=== PATIENT | female | born 1990 | race Caucasian/White ===

== ENCOUNTER 2018-10-01 11:05 | Inpatient (IN) | payer MEDICAID, OTHER ==
[2018-10-01] MEDS ORDERED: MAGNESIUM SULFATE 40GM/1000ML 40 GM/1,000 ML BAG IV ONE (11:55)
[2018-10-01] MEDS ORDERED: MAGNESIUM SULFATE 4GM/100ML 4 GM/100 ML BAG IV ONE (11:56)
[2018-10-01] MEDS ORDERED: CELESTONE SOLUSPAN IM ONE ×2 (11:56→11:58)
[2018-10-01] MEDS ORDERED: MAGNESIUM SULFATE 40GM/1000ML 40 GM/1,000 ML BAG IV SCH (12:00)
[2018-10-01 12:05] LABS: Hematocrit 31.4 % (30.3-42.9); Hemoglobin 10.1 gm/dl (10.1-14.3); Mean Corpuscular HGB Conc 32 % (30-34); Platelet Count 217 K/mm3 (140-440); Red Blood Count 4.54 M/mm3 (3.65-5.03)
[2018-10-01] MEDS ORDERED: AMPICILLIN/NS 2 GM/100 ML 2 GM/100 ML BAG IV NR (12:11)
[2018-10-01 12:17] LABS: Mean Corpuscular Volume 69 fl (79-97)
[2018-10-01] MEDS ORDERED: MORPHINE IV NR (12:17)
[2018-10-01] MEDS ORDERED: LACTATED RINGERS 500 ML IV ONE (12:22)
--- NOTE | 2018-10-01 12:50 | Consultation ---
Consult Note - Parent Education I met with parent(s) and discussed the following:: Need for NICU admission, Poss ible need for intubation and surfactant or other resp support, Temperature regulation, Head ultrasounds to evaluate IVH, Possible need for IV fluids/TPN and IV antibiotics, Possible need for umbilical lines, Importance of providing breast milk & encouraged pumping aft delivery, Donor breast milk if baby meets criteria after , Slow feeding advancement and monitoring of tolerance. NG/OG feeds, Data for survival & survival without significant co-morbidities Parent(s) demonstrated understanding of all the information:: Yes Additional Comment: Approx 25 weeks gestation presenting with labor, fully dilated cervix and bulging bag Assessment and Plan - Assessment Gestation:: 25 (weeks) Estimated Weight: Unknown - Plan Plan: Agree with Mag & steroids Will attend delivery Please call NICU with questions
--- NOTE | 2018-10-01 13:54 | History and Physical Report ---
History of Present Illness Date of admission: 10/01/18 11:40 Chief complaint: back pain, diarrhea History of present illness: 28yo MASTER [birth year] presents to L&D complaining of back pain that started yesterday evening. Upon exam in triage she was found to be 10cm dilated with bulging membranes. She has received late care at [facility] because she was on OCPs at the time of conception therefore she is dated by 21 week sono. Past History - Obstetrical History : 4 Medications and Allergies Allergies Allergy/AdvReac Type Severity Reaction Status Date / Time No Known Allergies Allergy Verified 10/01/18 11:21 Active Meds: Active Medications Magnesium Sulfate (Magnesium Sulfate 40gm/1000ml) 40 gm in 1,000 mls @ 50 mls/hr IV DIRECT CINTHIA Last Admin: 10/01/18 12:38 Dose: 2 gm/hr, 50 mls/hr Documented by: Lactated Ringer's (Lactated Ringers) 1,000 mls @ 75 mls/hr IV DIRECT CINTHIA Ampicillin Sodium (Polycillin/Ns 2 Gm/100 Ml) 2 gm in 100 mls @ 100 mls/hr IV ONCE NR; Protocol Stop: 10/01/18 14:11 - Vital Signs Vital signs: Vital Signs Pulse Pulse Ox 79 99 10/01/18 11:19 10/01/18 11:19 Temp Pulse Resp BP Pulse Ox 97.7 F 98 H 20 128/69 99 10/01/18 11:23 10/01/18 13:47 10/01/18 11:23 10/01/18 13:43 10/01/18 13:47 - Obstetrical FHR: category 2 Cervical Dilatation: 10 Cervical Effacement Percentage: 100 station: -5 Results Result Diagrams: 10/01/18 11:40 Abnormal lab results 10/01/18 Range/Units 11:40 MCV 69 L (79-97) fl MCH 22 L (28-32) pg RDW 23.0 H (13.2-15.2) % All other labs normal. Assessment and Plan - Patient Problems (1) 24 weeks gestation of Current Visit: Yes Status: Acute Plan to address problem: Betamethasone for lung maturity Magnesium sulfate for neuroprotection Ampicillin for GBS prophylaxis Routine labs Trendelenburg/Bedrest APA consult. (2) labor Current Visit: Yes Status: Acute Plan to address problem: Neonatology consult. (3) Anemia affecting Current Visit: Yes Status: Acute Plan to address problem: Hbg 8.3 prenatally Supplement with iron sulfate.
[2018-10-01] MEDS ORDERED: PITOCin/NS 20 UNIT/1000ML DRIP 20,000 MILLIUNITS/1,000 ML BAG IV ONE (14:20)
[2018-10-01] MEDS ORDERED: PITOCin/NS 20 UNIT/1000ML DRIP 20 UNITS/1,000 ML BAG IV SCH (15:00)
[2018-10-01] MEDS ORDERED: NACL 0.9% 500 ML 500 ML IV SCH (15:14)
[2018-10-01] MEDS ORDERED: DIPRIVAN 10 MG/ML IV ONE (15:24)
[2018-10-01] MEDS ORDERED: NACL 0.9% IR ONE (15:30)
[2018-10-01] MEDS ORDERED: SUBLIMAZE ONE (15:41)
[2018-10-01] MEDS ORDERED: NEO SYNEPHRINE/NS Syringe(OR USE) IV ONE ×3 (15:44→17:28)
[2018-10-01 15:45] LABS: Hematocrit 23.7 % (30.3-42.9); Hemoglobin 7.7 gm/dl (10.1-14.3); Mean Corpuscular HGB Conc 33 % (30-34); Mean Corpuscular Volume 71 fl (79-97); Platelet Count 290 K/mm3 (140-440); Red Blood Count 3.35 M/mm3 (3.65-5.03)
[2018-10-01] MEDS ORDERED: CYTOTEC PR ONE (15:46)
[2018-10-01] MEDS ORDERED: CYTOTEC ONE (15:47)
[2018-10-01] MEDS ORDERED: NACL 0.9% 500 ML 500 ML ONE (15:52)
[2018-10-01] MEDS ORDERED: NACL 0.9% 500 ML 500 ML IV ONE ×2 (15:54→15:55)
[2018-10-01 16:00] LABS: Alanine Aminotransferase 18 units/L (7-56); BUN/Creatinine Ratio 13; Blood Urea Nitrogen 5 mg/dL (7-17); Calcium 7.9 mg/dL (8.4-10.2); Hemolysis Index 13
[2018-10-01 16:23] LABS: Red Cell Distribution Width 22.4 % (13.2-15.2)
--- NOTE | 2018-10-01 16:50 | Procedure Note ---
OB Delivery Note - Delivery Surgeon: EDUARDO MUKHERJEE Estimated blood loss: 1000cc - Vaginal Intrapartum events: labor-<37 weeks Delivery induction: none Delivery augmentation: rupture of membranes Delivery monitor: external FHT Route of delivery: Delivery placenta: manual (see OR report) Episiotomy: none Delivery laceration: none Delivery comments: Called to the Room 2006 by Ms Yeimy RN for worsening of painful contractions and maternal complaint of pressure. Upon entering the room membranes were bulging from the introitus under pressure. Membranes were ruptured and slow rupture of membranes ensued. vertex descended the vaginal canal and body delivered with maternal expulsion forces. Delayed cord clamping was instructed by Dr. Kinney and was covered with blue towel and stimulated. Cord was then clamped and cut x 2 and handed over to awaiting neonatology staff. Attention was then turned to delivery of the placenta. The cord was noted to avulse and bleeding was 600-800ml at that time. A D&C was called for delivery of the placenta in a placenta undergoing avulsion when the patient stated she felt "dizzy." Sternal rub was administered, blood pressure noted 114/70--> 90/50s. The patient was intermittently in and out of consciousness. A code was called. The patient was transported to the OR for continued management. See OP report.
--- NOTE | 2018-10-01 17:23 | Operative Report ---
Operative Report Operative Report: DATE OF OPERATION 10/01/18 PREOP Diagnosis 1. hemorrhage 2. Retained placenta 3. Partial umbilical cord avulsion 3. delivery POSTOP Diagnosis 1. hemorrhage 2. Retained placenta 3. Partial umbilical cord avulsion 3. delivery Procedure: 1) Suction Dilatation and Curettage 2) Manual removal of placenta Findings 1. Uterus firm and below umbilicus at close of case Surgeon 1. Iwona Ivy MD Anesthesia: 1. General I/O: EBL: 1300ml (labor and operating room blood loss) 3 units packed red blood cells (including 2 units O negative) Specimens removed: 1. Products of conception 2. Placenta Complications: none Disposition: Patient taken to recovery room in stable condition INDICATIONS: The patient is a 28yo s/p spontaneous vaginal delivery of infant. During delivery of placenta the patient became hypotensive, tachycardic and with delayed response to commands. Due to the hemorrhage and partial cord avulsion the patient was transported to Labor and Delivery OR for a suction D&C and manual removal of placenta . The patient was previously consented and the risks including but not limited to bleeding, infection, injury to surrounding organs and possible need for hysterectomy were discussed. All questions were answered and informed consent signed. PROCEDURE: The patient was taken to OR1 in stable condition. She was placed in the supine position. She received Doxycycline 200mg IV and wore SCDs. Adequate anesthesia was achieved and the patient was placed in the dorsal lithotomy position using Luis Stirrups. Vaginal prep was done and she was prepped and draped in a sterile fashion. A surgical hand was placed into the uterus and placenta manually removed. Bimanual massage was done. A sterile speculum was placed per vagina and single-toothed tenaculum placed on the anterior lip of the cervix. A #10 curved cannula was then connected to the suction canister. Adequate pressure was achieved with the suction. The cannula was then placed through the cervical os and products of conception was collected. A #2 sharp curette was used to gently currette the uterus. Speculum and tenaculum were removed and noted to be hemostatic. Pitocin 40 units IV was administered. 1000mcg Misoprostol was placed per rectum. The uterus was noted to be firm at close of case. Minimal uterine bleeding was noted. All counts were correct. The patient tolerated the procedure well and was awakened from anesthesia and taken to the recovery room. The patient received 2 units pRBCs in the OR and pressors to treat hypotension. Due to the level of care required she was transported to the ICU for recovery.
[2018-10-01] MEDS ORDERED: NACL 0.9% 1000 ML 3,000 ML ONE (17:28)
[2018-10-01] MEDS ORDERED: LACTATED RINGERS 1,000 ML ONE (17:28)
[2018-10-01] MEDS ORDERED: XYLOCAINE MPF 2% ONE (17:29)
[2018-10-01 17:50] LABS: INR 1.06 (0.87-1.13); Partial Thromboplastin Time 21.2 Sec. (24.2-36.6)
[2018-10-01] MEDS: LACTATED RINGERS 1,000 ML IV SCH (18:22)
[2018-10-01] MEDS ORDERED: PERCOCET 5/325 PO ONE (18:30)
[2018-10-01] MEDS: DOXYCYCLINE HYCLATE 200 MG in NACL 0.9% 250ML 250 ML IV SCH (18:30)
[2018-10-01] MEDS ORDERED: LANSINOH TP PRN (19:31)
[2018-10-01] MEDS ORDERED: ZOFRAN IV PRN (19:31)
[2018-10-01] MEDS ORDERED: MILK OF MAGNESIA PO PRN (19:31)
[2018-10-01] MEDS ORDERED: DULCOLAX PR PRN (19:31)
[2018-10-01] MEDS ORDERED: BENADRYL PO PRN (19:31)
[2018-10-01] MEDS ORDERED: PHENERGAN PR PRN (19:31)
[2018-10-01] MEDS ORDERED: TUCKS PAD TP PRN (19:31)
[2018-10-01] MEDS ORDERED: TYLENOL PO PRN (19:31)
[2018-10-01] MEDS ORDERED: PHENERGAN PO PRN (19:31)
[2018-10-01] MEDS ORDERED: SODIUM CHLORIDE FLUSH SYRINGE 10 ML IV PRN (20:00)
[2018-10-01 21:46] LABS: Hematocrit 23.5 % (30.3-42.9); Hemoglobin 7.8 gm/dl (10.1-14.3)
[2018-10-01] MEDS: METHERGINE PO SCH (22:00)
[2018-10-01] MEDS: FEOSOL PO SCH (22:00)
[2018-10-01] MEDS: COLACE PO SCH (22:15)
[2018-10-02] MEDS: IBUPROFEN PO SCH ×4 (00:44→13:48)
[2018-10-02] MEDS: LACTATED RINGERS 1,000 ML IV SCH ×2 (04:31→09:42)
[2018-10-02] MEDS: METHERGINE PO SCH ×3 (06:20→21:37)
[2018-10-02] MEDS: DOXYCYCLINE HYCLATE 200 MG in NACL 0.9% 250ML 250 ML IV SCH (06:21)
--- NOTE | 2018-10-02 07:04 | Anesthesia Consultation ---
Anesthesia Consult and Med Hx Date of service: 10/02/18 - Airway Anesthetic Teeth Evaluation: Good ROM Head & Neck: Adequate Mental/Hyoid Distance: Adequate Mallampati Class: Class II Intubation Access Assessment: Probably Good - Pre-Operative Health Status ASA Pre-Surgery Classification: ASA3, Emergency Proposed Anesthetic Plan: General - Pulmonary Hx Asthma: No COPD: No Hx Pneumonia: No - Cardiovascular System Hx Hypertension: No - Central Nervous System Hx Seizures: No Hx Psychiatric Problems: No - Endocrine Hx Renal Disease: No Hx End Stage Renal Disease: No Hx Hypothyroidism: No Hx Hyperthyroidism: No - Hematic Hx Anemia: Yes - Other Systems Hx Alcohol Use: No Hx Cancer: No - Additional Comments Anesthesia Medical History Comments: severe hemorrhage, taken to OR for D&C
--- NOTE | 2018-10-02 07:04 | Anesthesia Day of Surgery ---
Anesthesia Day of Surgery - Day of Surgery Patient Examined: Yes Patient H&P Reviewed: Yes Patient is NPO: Yes
--- NOTE | 2018-10-02 07:07 | Post Anesthesia Evaluation ---
- Post Anesthesia Evaluation Patient Participated: Yes Airway Patent: Yes Stable Respiratory Function: Yes Nausea/Vomiting: No Temp > 96.8F: Yes Pain Manageable: Yes Adequeate Hydration: Yes Anesthesia Complications: No Block Receding Appropriately: Not Applicable Patient on Ventilator: No
[2018-10-02] MEDS: FEOSOL PO SCH ×2 (09:39→21:37)
[2018-10-02] MEDS: COLACE PO SCH ×2 (09:40→21:37)
[2018-10-02] MEDS: PRENATAL VITAMIN PO SCH (09:40)
[2018-10-02 10:03] LABS: Hematocrit 21.8 % (30.3-42.9)
--- NOTE | 2018-10-02 12:44 | Consultation ---
History of Present Illness - Reason for Consult Consult date: 10/02/18 Intraoperative Hemorrhage and Post-op follow up. Requesting physician: EDUARDO MUKHERJEE - History of Present Illness 28 y/o female with status post with hemorrhage transitioned to the ICU for further monitoring. Patient was given 2 units of PRBC's during the case as They suspected a 2 liters blood loss. I spoke with anesthesia from the OR yesterday who gave me some insight into the procedure and case. Patient awake and alert. Stable. Art line pressure is much better than cuff. Past History Past Medical History: other (multiple pregnancies) Past Surgical History: Medications and Allergies Allergies Allergy/AdvReac Type Severity Reaction Status Date / Time No Known Allergies Allergy Verified 10/01/18 11:21 Home Medications Medication Instructions Recorded Confirmed Last Taken Type Vitamin 1 tab PO DAILY 10/01/18 10/01/18 09/30/18 History Active Meds: Active Medications Acetaminophen (Tylenol) 650 mg PO Q4H PRN PRN Reason: Pain MILD(1-3)/Fever >100.5/CAIN Acetaminophen/Hydrocodone Bitart ([place] 5/325) 2 each PO Q6H PRN PRN Reason: Pain, Moderate (4-6) Bisacodyl (Dulcolax) 10 mg RI BID PRN PRN Reason: Constipation Diphenhydramine HCl (Benadryl) 25 mg PO Q6H PRN PRN Reason: Itching Docusate Sodium (Colace) 100 mg PO BID [facility] Last Admin: 10/02/18 09:40 Dose: 100 mg Documented by: Ferrous Sulfate (Feosol) 325 mg PO BID [facility] Last Admin: 10/02/18 09:39 Dose: 325 mg Documented by: Magnesium Sulfate (Magnesium Sulfate 40gm/1000ml) 40 gm in 1,000 mls @ 50 mls/hr IV DIRECT CINTHIA Last Admin: 10/01/18 12:38 Dose: 2 gm/hr, 50 mls/hr Documented by: Lactated Ringer's (Lactated Ringers) 1,000 mls @ 75 mls/hr IV DIRECT CINTHIA Last Admin: 10/02/18 09:42 Dose: 75 mls/hr Documented by: Oxytocin/Sodium Chloride (Pitocin/Ns 20 Unit/1000ml Drip) 20 units in 1,000 mls @ 0 mls/hr IV DIRECT [facility] Ibuprofen (Motrin) 600 mg PO Q6H [facility] Last Admin: 10/02/18 09:39 Dose: 600 mg Documented by: Magnesium Hydroxide (Milk Of Magnesia) 30 ml PO HS PRN PRN Reason: Constipation Measles/Mumps/Rubella Vaccine Live (M-M-R Ii Vaccine) 0.5 ml SUB-Q .ONCE ONE Stop: 10/02/18 19:32 Methylergonovine Maleate (Methergine) 0.2 mg PO Q8HR [facility] Last Admin: 10/02/18 06:20 Dose: 0.2 mg Documented by: Multi-Ingredient Ointment (Lansinoh) 1 applic TP PRN PRN PRN Reason: Sore Nipples Multivitamins/Iron/Calcium ( Vitamin) 1 each PO QDAY [facility] Last Admin: 10/02/18 09:40 Dose: 1 each Documented by: Ondansetron HCl (Zofran) 4 mg IV Q8H PRN PRN Reason: Nausea And Vomiting Promethazine HCl (Phenergan) 25 mg RI Q6H PRN PRN Reason: Nausea And Vomiting Promethazine HCl (Phenergan) 25 mg PO Q6H PRN PRN Reason: Nausea And Vomiting Sodium Chloride (Sodium Chloride Flush Syringe 10 Ml) 10 ml IV PRN PRN PRN Reason: LINE FLUSH Witch Alicia/Glycerin (Tucks Pad) 1 each TP PRN PRN PRN Reason: Hemorrhoid/cleansing/soothing Review of Systems All systems: negative Exam - Constitutional Vitals: Temp Pulse Resp BP Pulse Ox 99.1 F 90 16 105/67 98 10/02/18 03:35 10/02/18 10:00 10/02/18 10:00 10/02/18 10:00 10/02/18 10:00 General appearance: Present: no acute distress, well-nourished - EENT Eyes: Present: PERRL, EOM intact ENT: hearing intact, clear oral mucosa, dentition normal - Neck Neck: Present: supple, normal ROM - Respiratory Respiratory effort: normal Respiratory: bilateral: CTA - Cardiovascular Rhythm: regular Heart Sounds: Present: S1 & S2 - Abdominal General gastrointestinal: Present: other (post-operative) Female genitourinary: Present: deferred - Rectal Rectal Exam: deferred - Musculoskeletal Musculoskeletal: strength equal bilaterally - Psychiatric Psychiatric: appropriate mood/affect - Neurologic Neurologic: CNII-XII intact Results - Labs CBC & Chem 7: 10/02/18 07:50 10/01/18 15:31 Labs: Abnormal lab results 10/01/18 10/01/18 10/01/18 Range/Units 11:40 15:31 15:31 WBC 15.4 H (4.5-11.0) K/mm3 RBC 3.35 L (3.65-5.03) M/mm3 Hgb 7.7 L (10.1-14.3) gm/dl Hct 23.7 L D (30.3-42.9) % MCV 71 L (79-97) fl MCH 23 L (28-32) pg RDW 22.4 H (13.2-15.2) % APTT (24.2-36.6) Sec. Carbon Dioxide 20 L (22-30) mmol/L BUN 5 L (7-17) mg/dL Creatinine 0.4 L (0.7-1.2) mg/dL Glucose 117 H (65-100) mg/dL Calcium 7.9 L (8.4-10.2) mg/dL Magnesium 2.90 H (1.7-2.3) mg/dL Alkaline Phosphatase 134 H (35-129) units/L Total Protein 5.3 L (6.3-8.2) g/dL Albumin 3.0 L (3.9-5) g/dL Crossmatch See Detail 10/01/18 10/01/18 10/02/18 Range/Units 17:00 20:48 07:50 WBC (4.5-11.0) K/mm3 RBC (3.65-5.03) M/mm3 Hgb 7.8 L 7.0 L (10.1-14.3) gm/dl Hct 23.5 L 21.8 L (30.3-42.9) % MCV (79-97) fl MCH (28-32) pg RDW (13.2-15.2) % APTT 21.2 L (24.2-36.6) Sec. Carbon Dioxide (22-30) mmol/L BUN (7-17) mg/dL Creatinine (0.7-1.2) mg/dL Glucose (65-100) mg/dL Calcium (8.4-10.2) mg/dL Magnesium (1.7-2.3) mg/dL Alkaline Phosphatase (35-129) units/L Total Protein (6.3-8.2) g/dL Albumin (3.9-5) g/dL Crossmatch Assessment and Plan 28 y/o female status post for and retained placenta, with intraoperative hemorrhage 1. No further bleeding overnight 2. HgB is 7. Prior to OR was [address] Mukherjee who thinks she may have been 8 a month ago. I would believe the 8 more than 10. Will hold on transfusion for now and suggest checking H/H daily. If less then 7 would transfuse. OB appears to follow hematocrit more as this was asked about this morning. 3. We will remove the art line 4. Stable for transfer. Will send to mother baby 5. All others per BENDING ROLL OPERATOR
--- NOTE | 2018-10-02 15:15 | Progress Note ---
Assessment and Plan - Patient Problems (1) 24 weeks gestation of Current Visit: Yes Status: Acute Plan to address problem: s/p vaginal delivery Recovered well in NICU overnight. Will monitor and if stable may be discharged home tomorrow. (2) labor Current Visit: Yes Status: Acute Plan to address problem: Infant in NICU (3) Anemia affecting Current Visit: Yes Status: Acute Plan to address problem: Hbg 8.3 prenatally s/p 2 units pRBCs for hemorrhage Current H/H 02/08. Asymptomatic. Will start supplemental iron. (4) hemorrhage Current Visit: Yes Status: Acute Plan to address problem: s/p D&C s/p 2 units packed red blood cells s/p misoprostol s/p pitocin IV Stable H/H Subjective - Subjective Interval history: 28yo day #1 s/p delivery, suction D&C secondary to retained placenta and hemorrhage managed overnight in the ICU for hypotension now doing well. Patient reports: appetite normal : doing well (transferred from NICU today ) Objective - Vital Signs Latest vital signs: Vital Signs Temp Pulse Pulse Resp BP Pulse Ox 10/02/18 13:45 95 H 17 108/51 100 10/02/18 13:31 92 H 14 108/51 99 10/02/18 13:15 92 H 14 108/51 99 10/02/18 13:00 96 H 13 108/51 99 10/02/18 12:45 93 H 18 98/46 99 10/02/18 12:31 92 H 28 H 98/46 99 10/02/18 12:15 89 11 L 98/46 100 10/02/18 12:00 99 H 16 102/65 99 10/02/18 11:45 92 H 26 H 102/65 99 10/02/18 11:31 95 H 31 H 102/65 100 10/02/18 11:15 97 H 27 H 102/65 100 10/02/18 11:00 96 H 72 14 102/65 99 10/02/18 10:45 97 H 18 105/67 100 10/02/18 10:31 100 H 18 105/67 100 10/02/18 10:15 88 15 105/67 99 10/02/18 10:00 90 16 105/67 98 10/02/18 09:45 98 H 14 100/73 99 10/02/18 09:31 90 18 100/73 99 10/02/18 09:15 83 16 100/73 99 10/02/18 09:00 89 18 100/73 99 10/02/18 08:45 103 H 26 H 103/69 100 10/02/18 08:31 81 22 103/69 98 10/02/18 08:15 72 15 103/69 100 10/02/18 08:00 78 19 103/69 99 10/02/18 07:45 82 21 106/67 99 10/02/18 07:31 74 20 106/67 98 10/02/18 07:15 74 17 106/67 99 10/02/18 07:00 82 72 15 106/67 100 10/02/18 06:45 86 13 98/51 98 10/02/18 06:31 77 26 H 98/51 98 10/02/18 06:15 78 27 H 98/51 98 10/02/18 06:01 87 22 98/51 100 10/02/18 05:45 76 23 102/55 97 10/02/18 05:31 82 25 H 102/55 99 10/02/18 05:15 77 24 102/55 98 10/02/18 05:00 90 23 102/55 100 10/02/18 04:45 76 26 H 94/49 97 10/02/18 04:31 79 26 H 94/49 98 10/02/18 04:15 90 16 94/49 100 10/02/18 04:00 76 21 94/49 98 10/02/18 03:45 78 26 H 104/66 98 10/02/18 03:36 99 10/02/18 03:35 99.1 F 10/02/18 03:31 79 27 H 104/66 99 10/02/18 03:15 75 24 104/66 98 10/02/18 03:00 82 27 H 104/66 99 10/02/18 02:45 70 24 102/60 98 10/02/18 02:31 72 24 102/60 98 10/02/18 02:15 75 25 H 96/55 99 10/02/18 02:00 76 22 96/55 100 10/02/18 01:45 89 16 102/60 98 10/02/18 01:31 77 27 H 102/60 98 10/02/18 01:15 82 26 H 102/60 98 10/02/18 01:05 99 10/02/18 01:00 86 20 102/60 100 10/02/18 00:45 86 21 94/56 99 10/02/18 00:31 89 27 H 94/56 98 10/02/18 00:21 92 H 21 94/56 100 10/02/18 00:15 97 H 15 94/56 99 10/02/18 00:00 89 29 H 94/56 99 10/01/18 23:45 93 H 21 94/53 100 10/01/18 23:36 99.1 F 10/01/18 23:31 95 H 18 94/53 99 10/01/18 23:15 107 H 16 94/53 99 10/01/18 23:00 99 H 12 94/53 100 10/01/18 22:45 99 H 17 92/51 100 10/01/18 22:31 102 H 21 107/56 99 10/01/18 22:15 101 H 27 H 107/56 98 10/01/18 22:00 102 H 26 H 107/56 98 10/01/18 21:45 93 H 22 107/56 99 10/01/18 21:31 115 H 13 107/56 99 10/01/18 21:15 108 H 22 107/56 99 10/01/18 21:00 108 H 20 107/56 99 10/01/18 20:45 103 H 16 101/63 99 10/01/18 20:31 110 H 15 101/63 100 10/01/18 20:15 116 H 17 101/63 99 10/01/18 20:00 106 H 17 101/63 99 10/01/18 19:52 99.2 F 10/01/18 19:45 119 H 20 91/58 99 10/01/18 19:38 100 10/01/18 19:31 109 H 14 100/63 100 10/01/18 19:15 113 H 20 100/63 99 10/01/18 19:00 117 H 16 91/58 100 10/01/18 18:45 108 H 15 100/63 99 10/01/18 18:31 122 H 15 100/63 99 10/01/18 18:15 123 H 21 100/63 99 10/01/18 18:00 116 H 19 100/63 98 10/01/18 17:45 116 H 29 H 130/79 100 10/01/18 17:31 119 H 16 130/79 100 10/01/18 17:18 97.6 F 10/01/18 17:15 95 H 23 130/79 100 10/01/18 17:00 104 H 22 100 10/01/18 16:46 115 H 19 10/01/18 16:44 126 H 15 Intake and Output 10/01/18 10/02/18 10/02/18 23:59 07:59 15:59 Intake Total 3670 761.25 888.75 Output Total 1300 2000 Balance 2370 761.25 -1111.25 Intake: IV 2650 761.25 388.75 Doxycycline Hyclate 200 250 mg In NaCl 0.9% 250Ml 250 ml @ 250 mls/hr IV Q12H [facility] Rx#:[id number] Lactated Ringers 1,000 ml 761.25 388.75 @ 75 mls/hr IV DIRECT CINTHIA Rx#:[id number] Oral 320 500 Intake, Free Water 200 Blood Product 500 Output: Urine 1300 2000 Indwelling Catheter 1000 Void 2000 Other: Total, Intake Amount 200 500 Total, Output Amount 1000 2000 Estimated Blood Loss 2,000 - Exam Abdomen: Present: soft Uterus: Present: firm - Labs Labs: Abnormal lab results 10/01/18 10/01/18 10/01/18 Range/Units 11:40 15:31 15:31 WBC 15.4 H (4.5-11.0) K/mm3 RBC 3.35 L (3.65-5.03) M/mm3 Hgb 7.7 L (10.1-14.3) gm/dl Hct 23.7 L D (30.3-42.9) % MCV 71 L (79-97) fl MCH 23 L (28-32) pg RDW 22.4 H (13.2-15.2) % APTT (24.2-36.6) Sec. Carbon Dioxide 20 L (22-30) mmol/L BUN 5 L (7-17) mg/dL Creatinine 0.4 L (0.7-1.2) mg/dL Glucose 117 H (65-100) mg/dL Calcium 7.9 L (8.4-10.2) mg/dL Magnesium 2.90 H (1.7-2.3) mg/dL Alkaline Phosphatase 134 H (35-129) units/L Total Protein 5.3 L (6.3-8.2) g/dL Albumin 3.0 L (3.9-5) g/dL Crossmatch See Detail 10/01/18 10/01/18 10/02/18 Range/Units 17:00 20:48 07:50 WBC (4.5-11.0) K/mm3 RBC (3.65-5.03) M/mm3 Hgb 7.8 L 7.0 L (10.1-14.3) gm/dl Hct 23.5 L 21.8 L (30.3-42.9) % MCV (79-97) fl MCH (28-32) pg RDW (13.2-15.2) % APTT 21.2 L (24.2-36.6) Sec. Carbon Dioxide (22-30) mmol/L BUN (7-17) mg/dL Creatinine (0.7-1.2) mg/dL Glucose (65-100) mg/dL Calcium (8.4-10.2) mg/dL Magnesium (1.7-2.3) mg/dL Alkaline Phosphatase (35-129) units/L Total Protein (6.3-8.2) g/dL Albumin (3.9-5) g/dL Crossmatch
[2018-10-02] MEDS ORDERED: M-M-R II VACCINE SUB-Q ONE (19:31)
[2018-10-03] MEDS: NORCO 5/325 PO PRN (01:55)
[2018-10-03] MEDS: METHERGINE PO SCH ×2 (05:42→23:54)
[2018-10-03] MEDS: COLACE PO SCH ×2 (10:47→23:54)
[2018-10-03] MEDS: FEOSOL PO SCH ×2 (10:47→23:54)
[2018-10-03] MEDS: PRENATAL VITAMIN PO SCH (10:47)
--- NOTE | 2018-10-03 19:39 | Progress Note ---
Assessment and Plan A: day 2 S/P . Severe anemia. P: Iron TID. Stat H&H. Continue current management. Subjective - Subjective Date of service: 10/03/18 Principal diagnosis: day 2 S/P spontaneous vaginal delivery; severe anemia Interval history: day 2 S/P ; severe anemia. Patient reports dizziness and fatigue. She denies chest pain, cough, abdominal pain, leg pain, heavy bleeding, or any other symptoms. Patient reports: appetite normal, voiding normally, pain well controlled, flatus, ambulating normally, no dizzy ambulation, no nauseated Milnor: doing well Objective - Vital Signs Latest vital signs: Vital Signs Temp Pulse Resp BP Pulse Ox 10/03/18 16:34 97.3 F L 79 18 122/78 10/03/18 12:35 97.6 F 74 18 110/67 99 10/03/18 08:00 18 10/03/18 07:56 97.3 F L 78 18 110/73 10/03/18 04:15 98.0 F 88 20 118/73 100 10/03/18 00:00 98.2 F 89 20 105/63 99 10/02/18 20:35 98.2 F 87 20 107/70 99 Intake and Output 10/03/18 10/03/18 10/03/18 07:59 15:59 23:59 Intake Total 480 480 480 Balance 480 480 480 Intake: Oral 480 480 480 Other: Total, Intake Amount 480 480 480 Voiding Method Toilet - Exam Cardiovascular: Present: Regular rate, Normal S1, Normal S2 Lungs: Present: Clear to auscultation Abdomen: Present: normal appearance, soft. Absent: distention, tenderness, guarding, rigidity Uterus: Present: normal, firm, fundal height below umbilicus. Absent: bogginess, tenderness Extremities: Present: normal. Absent: tenderness, edema
[2018-10-03 20:34] LABS: Hematocrit 20.1 % (30.3-42.9); Hemoglobin 6.7 gm/dl (10.1-14.3)
[2018-10-03] MEDS ORDERED: NACL 0.9% 500 ML 500 ML IV ONE ×2 (23:09→23:10)
[2018-10-04 07:43] LABS: Hematocrit 26.7 % (30.3-42.9); Hemoglobin 8.8 gm/dl (10.1-14.3)
[2018-10-04] MEDS: PRENATAL VITAMIN PO SCH (10:28)
[2018-10-04] MEDS: COLACE PO SCH (10:28)
[2018-10-04] MEDS: FEOSOL PO SCH (10:28)
[2018-10-04] MEDS: METHERGINE PO SCH ×2 (10:29→18:37)
--- NOTE | 2018-10-04 12:52 | Progress Note ---
Assessment and Plan - Patient Problems (1) Status post normal vaginal delivery Current Visit: Yes Status: Acute Plan to address problem: PPD 3 - unstable Continue routine PP orders Anticipate discharge in 24 hours pending X-Ray results (2) Anemia due to blood loss, acute Current Visit: Yes Status: Acute Plan to address problem: - Symptomatic: epigastric pain radiating to upper back - s/p Blood Transfusion - Continue iron therapy: Ferrous sulfate 325mg PO TID (3) Acute epigastric pain Current Visit: Yes Status: Acute Plan to address problem: - Chest X-Ray ordered Subjective - Subjective Date of service: 10/04/18 Principal diagnosis: PPD #3; s/p ; Severe Anemia secondary to PPH Interval history: See H&P, OB Delivery Procedure Note, Operative Report and PP/J2EE JAVA DEVELOPER Progress Notes Patient reports: appetite normal, voiding normally, pain poorly controlled (c/o epigastric pain radiating to her upper back), ambulating normally, other (denies abdominal pain, palpitations, dizziness, leg pain, N/V or fever/chills) : in NICU Objective - Vital Signs Latest vital signs: Vital Signs Temp Pulse Resp BP BP Pulse Ox 10/04/18 07:45 97.6 F 88 20 115/81 99 10/04/18 04:40 98.7 F 74 18 116/82 99 10/04/18 03:20 98.6 F 75 16 102/69 10/04/18 02:55 98.5 F 73 16 106/68 10/04/18 02:30 98.5 F 72 104 H 104/69 10/04/18 02:00 98.5 F 77 18 98/63 10/03/18 23:54 18 10/03/18 20:45 98.9 F 89 18 101/65 98 10/03/18 20:00 18 10/03/18 16:34 97.3 F L 79 18 122/78 Intake and Output 10/03/18 10/04/18 10/04/18 23:59 07:59 15:59 Intake Total 480 250 Balance 480 250 Intake: Oral 480 Blood Product 250 Leukoreduced Red Blood 250 Cells Unit [id number] Other: Total, Intake Amount 480 Voiding Method Toilet # Voids Void 1 1 - Exam Cardiovascular: Present: Regular rate Lungs: Present: Clear to auscultation, Normal air movement Abdomen: Present: normal appearance, soft Vulva: both: normal Uterus: Present: normal, firm, fundal height below umbilicus Extremities: Present: normal Comments: scant lochia - Labs Labs: Abnormal lab results 10/01/18 10/03/18 10/04/18 Range/Units 11:40 20:11 07:27 Hgb 6.7 L 8.8 L (10.1-14.3) gm/dl Hct 20.1 L 26.7 L D (30.3-42.9) % Crossmatch See Detail
[2018-10-04] MEDS: NORCO 5/325 PO PRN (13:54)
--- NOTE | 2018-10-04 14:52 | XRay Report ---
ROUTINE CHEST, TWO VIEWS: HISTORY: chest pain. The trachea, heart, mediastinal contour, lung [place] and bony thorax are unremarkable. IMPRESSION: Unremarkable chest x-ray.
[2018-10-04] MEDS ORDERED: PEPCID PO SCH (15:00)
--- NOTE | 2018-10-04 18:07 | Discharge Summary ---
Providers - Providers Date of Admission: 10/01/18 11:40 Date of discharge: 10/04/18 Attending physician: YAIREL CORRIGAN MD Primary care physician: YARIEL CORRIGAN MD Hospitalization Reason for admission: labor Delivery: Episiotomy: none Laceration: none Other procedures: curettage complications: transfusion, other (PPH) Discharge diagnosis: delivery baby: female Hospital course: Complicated by PPH. s/p blood transfusion Condition at discharge: Stable Disposition: SC-01 TO HOME OR SELFCARE - Discharge Diagnoses (1) Status post normal vaginal delivery Status: Acute (2) Anemia due to blood loss, acute Status: Acute Comment: Asymptomatic Continue iron therapy (3) Acute epigastric pain Status: Resolved Comment: Pepcid given prior to discharge Plan - Discharge Medications Prescriptions: Docusate Sodium [Colace CAP] 100 mg PO BID #60 capsule Ferrous Sulfate [Feosol 325 MG tab] 325 mg PO TID #90 tablet - Provider Discharge Summary Activity: routine, no sex for 6 weeks, no heavy lifting 4 weeks, no strenuous exercise Diet: routine Instructions: routine Additional instructions: [] Smoking cessation referral if applicable(refer to patient education folder for contact #) [] Refer to [facility] Booklet Call your doctor immediately for: * Fever > 100.5 * Heavy vaginal bleeding ( >1 pad per hour) * Severe persistent headache * Shortness of breath * Reddened, hot, painful area to leg or breast * Drainage or odor from incision. * Keep incision clean and dry at all times and follow doctor's instructions regarding bathing/showering - Follow up plan Follow up: YARIEL CORRIGAN MD [Primary Care Provider] - 6 Weeks (Follow-up at [facility] as needed or in 6 weeks for exam)
[2018-10-04 19:42] VITALS: BP 118/75
== END 2018-10-04 20:00 | disposition home or self-care (01) | DRG 806 ==
LOC: TRG 11:05 → LD 11:40 → TRG 11:40 → CC1 16:46 → OB 10-02 15:14
PROVIDERS: ADMIT Obstetrics & Gynecology; ATTEND Obstetrics & Gynecology
PROC: 10E0XZZ Delivery of Products of Conception, External Approach (ICD-10-PCS; principal; 2018-10-01)
PROC: 10D17Z9 Manual Extraction of Products of Conception, Retained, Via Natural or Artificial Opening (ICD-10-PCS; 2018-10-01)
PROC: 30233N1 Transfusion of Nonautologous Red Blood Cells into Peripheral Vein, Percutaneous Approach (ICD-10-PCS; 2018-10-01)
PROC: 3E0234Z Introduction of Serum, Toxoid and Vaccine into Muscle, Percutaneous Approach (ICD-10-PCS; 2018-10-02)
DX: O60.12X0 Preterm labor second trimester with preterm delivery second trimester, not applicable or unspecified (principal); O72.2 Delayed and secondary postpartum hemorrhage; Z37.0 Single live birth; D62 Acute posthemorrhagic anemia; O99.02 Anemia complicating childbirth; D64.9 Anemia, unspecified; O69.89X0 Labor and delivery complicated by other cord complications, not applicable or unspecified; Z3A.24 24 weeks gestation of pregnancy; Z23 Encounter for immunization
CPT/HCPCS: 36415; 36620; 59025; 71046; 80053; 83735; 85014; 85018; 85027; 85384; 85610; 85730; 86592; 86850; 86900; 86901; 86920; 88305; 90707; G0378; J0290; J0702; J2270; J2370; J2590; J2704; J3010; J3475; J7030; J7040; J7050; J7120; P9016